=== PATIENT | female | born 1955 | race African-American/Black ===

== ENCOUNTER 2022-02-18 11:41 | Inpatient (IN) | payer MEDICARE, MEDICAID ==
[~2022-02-18] VITALS: Ht 170.2 cm; Wt 88.5 kg
[~2022-02-18 11:41] MED LIST: ACET-3161 PO; ALBU05 IH; COLC0.6T66 PO; FERR-63 PO; FLUT1DIS3 IH; FOLI-43 PO; FURO-151 PO; LEVO175T7 PO; NAPR-681 PO; OMEP20CA14 PO; PROP10TA10 PO; VIT D3
[2022-02-18 12:30] LABS: HEMOGLOBIN. 9.5 g/dL (12.0-16.0); MEAN CORPUSCULAR VOLUME 69.9 fL (81.0-99.0); RED BLOOD CELL COUNT 4.14 mill/uL (4.2-5.4); RED CELL DISTRIBUTION WIDTH 16.6 % (11.6-14.6)
[2022-02-18 12:37] LABS: CHLORIDE 106 mEq/L (98-107)
[2022-02-18 12:47] LABS: ETHANOL BLOOD < 10 mg/dL
[2022-02-18 13:16] LABS: INR 1.4; PROTHROMBIN TIME 14.8 sec (9.6-11.0)
[2022-02-18] MEDS ORDERED: LEVOFLOXACIN 750MG PREMIX 150 ML IV ONE (13:45)
[2022-02-18 14:07] LABS: PLATELET ESTIMATE NORMAL
[2022-02-18 14:12] LABS: PLATELET 262 x1000/uL (130-400)
[2022-02-18] MEDS ORDERED: SODIUM CHLORIDE 0.9% 500 ML IV ONE ×2 (14:15→19:45)
[2022-02-18 16:35] VITALS: BP 88/47
[2022-02-18 16:40] VITALS: BP 92/47
[2022-02-18 16:58] VITALS: BP 101/36
[2022-02-18 17:02] VITALS: BP 101/36
[2022-02-18] MEDS ORDERED: ONDANSETRON HCL 4MG/2ML INJ IV PRN (17:15)
[2022-02-18] MEDS ORDERED: IPRATROPIUM/ALBUTEROL 0.5-3(2.5)MG/3ML NEB NEB PRN (17:15)
[2022-02-18] MEDS ORDERED: ACETAMINOPHEN 650MG/20.3ML UDC GT PRN ×2 (17:15)
[2022-02-18] MEDS: DEXT 5%/0.9% NACL 1,000 ML IV SCH (17:34)
[2022-02-18 19:05] LABS: TOTAL IRON BINDING CAPACITY 233 ug/dL (250-450)
[2022-02-18 19:22] LABS: T4 FREE 1.66 ng/dL (0.76-1.46)
[2022-02-18 19:40] VITALS: BP 68/39
[2022-02-18 20:00] VITALS: BP 90/39
[2022-02-18] MEDS ORDERED: MIDODRINE HCL 5MG TABLET NG SCH (20:00)
[2022-02-18] MEDS: LACTULOSE 20G/30ML UDC NG SCH (20:18)
[2022-02-18] MEDS: PANTOPRAZOLE SODIUM 40 MG/VIAL IV SCH (20:19)
[2022-02-18] MEDS ORDERED: LACTULOSE 20G/30ML UDC NG SCH (22:00)
[2022-02-19] VITALS: BP 118/64
[2022-02-19 04:00] VITALS: BP 96/56
[2022-02-19 07:46] LABS: HEMATOCRIT. 22.9 % (36.0-48.0); HEMOGLOBIN. 7.5 g/dL (12.0-16.0); MEAN CORPUSCULAR HEMOGLOBIN 22.7 pg (28.0-32.0); MEAN PLATELET VOLUME 9.8 fl (7.4-10.4); PLATELET 231 x1000/uL (130-400); RED BLOOD CELL COUNT 3.32 mill/uL (4.2-5.4); RED CELL DISTRIBUTION WIDTH 16.2 % (11.6-14.6)
[2022-02-19 08:00] VITALS: BP 112/57
[2022-02-19 08:11] LABS: CHLORIDE 108 mEq/L (98-107)
[2022-02-19 08:21] LABS: PHOSPHORUS 5.2 mg/dL (2.5-4.9)
[2022-02-19] MEDS ORDERED: MIDODRINE HCL 5MG TABLET NG SCH (09:00)
[2022-02-19] MEDS: CITRIC ACID/SODIUM CITRATE SOLN 15ML UDC PO SCH ×2 (10:53→17:56)
[2022-02-19] MEDS: LACTULOSE 20G/30ML UDC NG SCH ×4 (10:53→21:54)
[2022-02-19 10:55] LABS: CLARITY URINE CLEAR (CLEAR); COLOR URINE DARK YELLOW (YELLOW); KETONES URINE NEGATIVE (NEGATIVE); LEUKOCYTE ESTERASE URINE NEGATIVE (NEGATIVE); NITRITE URINE NEGATIVE (NEGATIVE); OCCULT BLOOD URINE NEGATIVE (NEGATIVE); PH URINE 5.5 (4.5-8.0); PROTEIN URINE NEGATIVE (NEGATIVE); SPECIFIC GRAVITY URINE 1.014 (1.005-1.030)
[2022-02-19] MEDS: DEXT 5%/0.9% NACL 1,000 ML IV SCH ×2 (11:55→16:04)
[2022-02-19 12:00] VITALS: BP 108/49
[2022-02-19 14:02] LABS: PLATELET ESTIMATE NORMAL
[2022-02-19 15:58] LABS: *AMPHETAMINES SCREEN URINE NEGATIVE (NEGATIVE); *BARBITURATES SCREEN URINE NEGATIVE (NEGATIVE); *BENZODIAZEPINES SCREEN URINE NEGATIVE (NEGATIVE); *COCAINE SCREEN URINE NEGATIVE (NEGATIVE); CANNABINOID URINE SCREEN NEGATIVE (NEGATIVE); METHADONE URINE SCREEN NEGATIVE (NEGATIVE); OPIATES URINE SCREEN NEGATIVE (NEGATIVE); PHENCYCLIDINE URINE SCREEN NEGATIVE (NEGATIVE)
[2022-02-19 16:00] VITALS: BP 112/53
[2022-02-19 16:58] LABS: FERRITIN 71 ng/mL (10-291)
[2022-02-19] MEDS ORDERED: ALBUMIN HUMAN 25GM/100ML (25%) IV NR (17:00)
[2022-02-19] MEDS ORDERED: OCTREOTIDE 1,000 MCG in SODIUM CHLORIDE 0.9% 98 ML IV SCH (17:00)
[2022-02-19 17:09] LABS: HEPATITIS B SURFACE ANTIGEN NEGATIVE
[2022-02-19 17:45] LABS: CREATINE KINASE 246 IU/L (26-192)
[2022-02-19 20:00] VITALS: BP 135/57
[2022-02-19 20:33] LABS: VITAMIN B12 SERUM >2000 pg/mL pg/mL (211-911)
[2022-02-19 20:48] LABS: FOLIC ACID (FOLATE) SERUM > 20.00 ng/mL (>5.38)
[2022-02-19] MEDS: PANTOPRAZOLE SODIUM 40 MG/VIAL IV SCH (21:53)
[2022-02-19] MEDS: RIFAXIMIN 550 MG TABLET PO SCH (21:54)
[2022-02-19] MEDS: MIDODRINE HCL 5MG TABLET NG SCH (22:00)
[2022-02-20] VITALS: BP 113/55
[2022-02-20] MEDS: OCTREOTIDE 1,000 MCG in SODIUM CHLORIDE 0.9% 98 ML IV SCH ×2 (03:21→23:52)
[2022-02-20 04:00] VITALS: BP 106/55
[2022-02-20] MEDS: LACTULOSE 20G/30ML UDC NG SCH ×3 (06:22→21:56)
[2022-02-20] MEDS: MIDODRINE HCL 5MG TABLET NG SCH ×3 (06:23→21:57)
[2022-02-20 07:44] LABS: INR 1.5; PROTHROMBIN TIME 15.9 sec (9.6-11.0)
[2022-02-20 07:55] LABS: HEMATOCRIT. 22.7 % (36.0-48.0); HEMOGLOBIN. 7.6 g/dL (12.0-16.0); MEAN CORPUSCULAR VOLUME 69.1 fL (81.0-99.0); RED BLOOD CELL COUNT 3.29 mill/uL (4.2-5.4)
[2022-02-20 08:00] VITALS: BP 107/52
[2022-02-20] MEDS ORDERED: ALBUMIN HUMAN 25GM/100ML (25%) IV NR (08:00)
[2022-02-20] MEDS ORDERED: LIDOCAINE HCL 1% 10 MG/ML 10ML VIAL ONE (08:03)
[2022-02-20] MEDS ORDERED: SODIUM BICARBONATE 4% (2.4MEQ) 5ML VIAL IV ONE (08:03)
[2022-02-20 08:36] LABS: PHOSPHORUS 5.5 mg/dL (2.5-4.9)
[2022-02-20 09:38] LABS: PLATELET ESTIMATE NORMAL
[2022-02-20 09:39] LABS: MEAN PLATELET VOLUME 9.9 fl (7.4-10.4)
[2022-02-20 09:40] LABS: PLATELET 215 x1000/uL (130-400)
[2022-02-20] MEDS: RIFAXIMIN 550 MG TABLET PO SCH ×2 (10:12→21:56)
[2022-02-20] MEDS: CITRIC ACID/SODIUM CITRATE SOLN 15ML UDC PO SCH ×3 (10:12→17:24)
[2022-02-20 12:00] VITALS: BP 111/83
[2022-02-20] MEDS: DEXT 5%/0.9% NACL 1,000 ML IV SCH ×2 (13:12→23:53)
[2022-02-20 16:00] VITALS: BP 111/83
[2022-02-20 20:00] VITALS: BP 98/47
[2022-02-20] MEDS: ALBUMIN HUMAN 25GM/100ML (25%) IV NR (21:44)
[2022-02-20] MEDS: PANTOPRAZOLE SODIUM 40 MG/VIAL IV SCH (21:58)
[2022-02-21] VITALS (12 sets, daily range): BP systolic 96–117; BP diastolic 37–65
[2022-02-21] MEDS: LACTULOSE 20G/30ML UDC NG SCH (05:44)
[2022-02-21] MEDS: MIDODRINE HCL 5MG TABLET NG SCH ×3 (05:45→21:57)
[2022-02-21 06:50] LABS: INR 1.7; PROTHROMBIN TIME 17.4 sec (9.6-11.0)
[2022-02-21 07:00] LABS: BASOPHILS % 0.3 % (0.0-2.0); EOSINOPHILS % 1.7 % (0.0-5.0); LYMPHOCYTES % 20.5 % (20.0-50.0); MEAN CORPUSCULAR HEMOGLOBIN 23.6 pg (28.0-32.0); MEAN CORPUSCULAR VOLUME 67.9 fL (81.0-99.0); MONOCYTES % 10.2 % (2.0-8.0); NEUTROPHILS % 67.3 % (40.0-76.0); RED BLOOD CELL COUNT 2.67 mill/uL (4.2-5.4); RED CELL DISTRIBUTION WIDTH 16.3 % (11.6-14.6)
[2022-02-21 08:03] LABS: HEMOGLOBIN. 6.3 g/dL (12.0-16.0)
[2022-02-21 08:04] LABS: HEMATOCRIT. 18.2 % (36.0-48.0)
[2022-02-21] MEDS: RIFAXIMIN 550 MG TABLET PO SCH (08:57)
[2022-02-21] MEDS: CITRIC ACID/SODIUM CITRATE SOLN 15ML UDC PO SCH ×3 (08:57→17:00)
[2022-02-21 10:49] LABS: MEAN PLATELET VOLUME 10.9 fl (7.4-10.4)
[2022-02-21 10:50] LABS: PLATELET 161 x1000/uL (130-400)
[2022-02-21] MEDS ORDERED: ALBUMIN HUMAN 25GM/100ML (25%) IV NR (18:00)
[2022-02-21] MEDS: PANTOPRAZOLE SODIUM 40 MG/VIAL IV SCH (21:36)
[2022-02-21] MEDS: OCTREOTIDE 1,000 MCG in SODIUM CHLORIDE 0.9% 98 ML IV SCH (21:56)
[2022-02-21] MEDS: ALBUMIN HUMAN 25GM/100ML (25%) IV NR (21:56)
[2022-02-21 23:45] LABS: HEMATOCRIT 21.6 % (36.0-48.0); HEMOGLOBIN 7.3 g/dL (12.0-16.0)
[2022-02-21 23:54] LABS: INR 1.7; PROTHROMBIN TIME 17.5 sec (9.6-11.0)
[2022-02-22] VITALS (11 sets, daily range): BP systolic 94–123; BP diastolic 38–55
[2022-02-22] MEDS: MIDODRINE HCL 5MG TABLET NG SCH ×3 (06:05→21:21)
[2022-02-22 07:14] LABS: BASOPHILS % 0.3 % (0.0-2.0); EOSINOPHILS % 0.9 % (0.0-5.0); HEMATOCRIT. 24.2 % (36.0-48.0); HEMOGLOBIN. 8.2 g/dL (12.0-16.0); MEAN CORPUSCULAR HEMOGLOBIN 24.6 pg (28.0-32.0); MEAN CORPUSCULAR VOLUME 72.2 fL (81.0-99.0); MONOCYTES % 9.4 % (2.0-8.0); NEUTROPHILS % 76.4 % (40.0-76.0); RED BLOOD CELL COUNT 3.35 mill/uL (4.2-5.4)
[2022-02-22] MEDS: CITRIC ACID/SODIUM CITRATE SOLN 15ML UDC PO SCH ×3 (08:35→17:11)
[2022-02-22] MEDS: FOLIC ACID/VITAMIN B COMP W-C TABLET PO SCH (08:36)
[2022-02-22] MEDS: LACTULOSE 20G/30ML UDC NG SCH (08:38)
[2022-02-22 09:30] LABS: MEAN PLATELET VOLUME 11.3 fl (7.4-10.4); PLATELET 145 x1000/uL (130-400)
[2022-02-22] MEDS ORDERED: POTASSIUM CHLORIDE 20MEQ TABLET SR PO NR (09:30)
[2022-02-22] MEDS ORDERED: METOLAZONE 10MG TABLET PO NR (15:00)
[2022-02-22] MEDS: OCTREOTIDE 1,000 MCG in SODIUM CHLORIDE 0.9% 98 ML IV SCH (17:12)
[2022-02-22] MEDS: PANTOPRAZOLE SODIUM 40 MG/VIAL IV SCH (21:21)
[2022-02-23] VITALS: BP 115/56
[2022-02-23 04:00] VITALS: BP 115/57
[2022-02-23] MEDS: MIDODRINE HCL 5MG TABLET NG SCH ×3 (06:12→20:58)
[2022-02-23 07:40] LABS: HEMATOCRIT. 29.3 % (36.0-48.0); HEMOGLOBIN. 9.8 g/dL (12.0-16.0); MEAN CORPUSCULAR HEMOGLOBIN 24.6 pg (28.0-32.0); MEAN CORPUSCULAR VOLUME 73.3 fL (81.0-99.0); MEAN PLATELET VOLUME 11.1 fl (7.4-10.4); PLATELET 169 x1000/uL (130-400); RED CELL DISTRIBUTION WIDTH 20.1 % (11.6-14.6)
[2022-02-23 08:00] VITALS: BP 101/48
[2022-02-23] MEDS: CITRIC ACID/SODIUM CITRATE SOLN 15ML UDC PO SCH ×3 (08:42→16:32)
[2022-02-23] MEDS: LACTULOSE 20G/30ML UDC NG SCH (08:42)
[2022-02-23] MEDS: FOLIC ACID/VITAMIN B COMP W-C TABLET PO SCH (08:43)
[2022-02-23 10:21] LABS: PLATELET ESTIMATE NORMAL
[2022-02-23] MEDS ORDERED: METOLAZONE 10MG TABLET PO NR (11:00)
[2022-02-23] MEDS: FUROSEMIDE 40MG/4ML VIAL IVP SCH (11:38)
[2022-02-23 12:00] VITALS: BP 104/49
[2022-02-23] MEDS: OCTREOTIDE 1,000 MCG in SODIUM CHLORIDE 0.9% 98 ML IV SCH (13:11)
[2022-02-23 16:00] VITALS: BP 132/53
[2022-02-23 20:00] VITALS: BP 114/65
[2022-02-23] MEDS: PANTOPRAZOLE SODIUM 40 MG/VIAL IV SCH (20:58)
[2022-02-24] VITALS: BP 104/53
[2022-02-24 04:00] VITALS: BP 108/54
[2022-02-24] MEDS: MIDODRINE HCL 5MG TABLET NG SCH ×3 (06:29→21:11)
[2022-02-24 07:49] LABS: HEMATOCRIT. 28.4 % (36.0-48.0); HEMOGLOBIN. 9.4 g/dL (12.0-16.0); MEAN CORPUSCULAR HEMOGLOBIN 24.2 pg (28.0-32.0); MEAN CORPUSCULAR VOLUME 73.3 fL (81.0-99.0); RED BLOOD CELL COUNT 3.87 mill/uL (4.2-5.4); RED CELL DISTRIBUTION WIDTH 20.2 % (11.6-14.6)
[2022-02-24 08:00] VITALS: BP 100/63
[2022-02-24 08:23] LABS: PLATELET ESTIMATE NORMAL
[2022-02-24 08:24] LABS: MEAN PLATELET VOLUME 10.8 fl (7.4-10.4); PLATELET 152 x1000/uL (130-400)
[2022-02-24] MEDS: FOLIC ACID/VITAMIN B COMP W-C TABLET PO SCH (08:43)
[2022-02-24] MEDS: LACTULOSE 20G/30ML UDC NG SCH (08:43)
[2022-02-24] MEDS: FUROSEMIDE 40MG/4ML VIAL IVP SCH (08:43)
[2022-02-24] MEDS: OCTREOTIDE 1,000 MCG in SODIUM CHLORIDE 0.9% 98 ML IV SCH (08:44)
[2022-02-24] MEDS: CITRIC ACID/SODIUM CITRATE SOLN 15ML UDC PO SCH (08:45)
[2022-02-24] MEDS: CITRIC ACID/SODIUM CITRATE SOLN 30ML UDC PO SCH ×3 (09:00→16:41)
[2022-02-24] MEDS ORDERED: LIDOCAINE HCL 1% 30ML VIAL (10MG/ML) ONE (09:19)
[2022-02-24] MEDS ORDERED: SODIUM BICARBONATE 4% (2.4MEQ) 5ML VIAL IV ONE (09:19)
[2022-02-24 16:00] VITALS: BP 93/45
[2022-02-24] MEDS ORDERED: ALBUMIN HUMAN 25GM/100ML (25%) IV NR (16:00)
[2022-02-24 20:00] VITALS: BP 111/54
[2022-02-24] MEDS: PANTOPRAZOLE SODIUM 40 MG/VIAL IV SCH (21:11)
[2022-02-25] VITALS: BP 115/63
[2022-02-25 04:00] VITALS: BP 98/53
[2022-02-25] MEDS: MIDODRINE HCL 5MG TABLET NG SCH ×3 (05:24→21:08)
[2022-02-25 06:42] LABS: BASOPHILS % 0.1 % (0.0-2.0); EOSINOPHILS % 1.2 % (0.0-5.0); HEMATOCRIT. 26.8 % (36.0-48.0); HEMOGLOBIN. 8.7 g/dL (12.0-16.0); LYMPHOCYTES % 7.3 % (20.0-50.0); MEAN CORPUSCULAR HEMOGLOBIN 24.3 pg (28.0-32.0); MEAN CORPUSCULAR VOLUME 74.5 fL (81.0-99.0); MONOCYTES % 11.3 % (2.0-8.0); NEUTROPHILS % 80.1 % (40.0-76.0); RED BLOOD CELL COUNT 3.59 mill/uL (4.2-5.4); RED CELL DISTRIBUTION WIDTH 21.4 % (11.6-14.6)
[2022-02-25 08:00] VITALS: BP 114/61
[2022-02-25] MEDS: LACTULOSE 20G/30ML UDC NG SCH (08:09)
[2022-02-25] MEDS: FOLIC ACID/VITAMIN B COMP W-C TABLET PO SCH (08:10)
[2022-02-25] MEDS: CITRIC ACID/SODIUM CITRATE SOLN 30ML UDC PO SCH (08:13)
[2022-02-25 08:42] LABS: PLATELET 143 x1000/uL (130-400)
[2022-02-25] MEDS ORDERED: ALBUMIN HUMAN 25GM/100ML (25%) IV NR ×2 (09:00→20:00)
[2022-02-25 12:00] VITALS: BP 107/55
[2022-02-25] MEDS: LACTULOSE 20G/30ML UDC PO SCH ×2 (13:25→21:08)
[2022-02-25 16:00] VITALS: BP 98/37
[2022-02-25] MEDS: AZTREONAM 500 MG in DEXTROSE 5% WATER 50 ML IV SCH (18:00)
[2022-02-25 20:00] VITALS: BP 94/45
[2022-02-25] MEDS: PANTOPRAZOLE SODIUM 40 MG/VIAL IV SCH (21:07)
[2022-02-25] MEDS: METRONIDAZOLE 250MG TABLET PO SCH (21:08)
[2022-02-26] VITALS (8 sets, daily range): BP systolic 100–157; BP diastolic 51–67
[2022-02-26] MEDS: DIPHENHYDRAMINE 50MG/ML VIAL IV PRN ×2 (00:31→10:55)
[2022-02-26] MEDS: AZTREONAM 500 MG in DEXTROSE 5% WATER 50 ML IV SCH ×3 (01:38→21:01)
[2022-02-26] MEDS: METRONIDAZOLE 250MG TABLET PO SCH ×2 (05:25→15:50)
[2022-02-26] MEDS: MIDODRINE HCL 5MG TABLET NG SCH ×2 (05:26→15:50)
[2022-02-26] MEDS: LACTULOSE 20G/30ML UDC PO SCH ×2 (05:26→15:50)
[2022-02-26 06:24] LABS: BASOPHILS % 0.2 % (0.0-2.0); EOSINOPHILS % 1.5 % (0.0-5.0); HEMATOCRIT. 24.9 % (36.0-48.0); HEMOGLOBIN. 8.3 g/dL (12.0-16.0); LYMPHOCYTES % 10.6 % (20.0-50.0); MEAN CORPUSCULAR HEMOGLOBIN 24.5 pg (28.0-32.0); MEAN CORPUSCULAR VOLUME 73.8 fL (81.0-99.0); MONOCYTES % 11.7 % (2.0-8.0); RED BLOOD CELL COUNT 3.38 mill/uL (4.2-5.4)
[2022-02-26 07:37] LABS: MEAN PLATELET VOLUME 11.7 fl (7.4-10.4); PLATELET 140 x1000/uL (130-400)
[2022-02-26] MEDS ORDERED: SODIUM CHLORIDE 0.9% 1,000 ML IV SCH (08:15)
[2022-02-26] MEDS: FOLIC ACID/VITAMIN B COMP W-C TABLET PO SCH (09:10)
[2022-02-26 10:04] LABS: CREATINE KINASE 220 IU/L (26-192)
[2022-02-26] MEDS ORDERED: ALBUMIN HUMAN 25GM/100ML (25%) IV NR (10:30)
[2022-02-26] MEDS: PANTOPRAZOLE SODIUM 40 MG/VIAL IV SCH (21:01)
[2022-02-27] MEDS ORDERED: ALBUMIN HUMAN 25GM/100ML (25%) IV NR (09:00)
== END 2022-02-26 22:00 | disposition home health service (06) | DRG 432 ==
LOC: ER 11:41 → 7EST 14:13 → EDBEDREQ 14:17 → EDBEDREQTM 14:17
PROVIDERS: ADMIT Internal Medicine; ATTEND Internal Medicine
PROC: 0W9G30Z Drainage of Peritoneal Cavity with Drainage Device, Percutaneous Approach (ICD-10-PCS; principal; 2022-02-20)
PROC: 30233N1 Transfusion of Nonautologous Red Blood Cells into Peripheral Vein, Percutaneous Approach (ICD-10-PCS; 2022-02-21)
PROC: 0W9G30Z Drainage of Peritoneal Cavity with Drainage Device, Percutaneous Approach (ICD-10-PCS; 2022-02-24)
DX: K70.31 Alcoholic cirrhosis of liver with ascites (principal); G93.41 Metabolic encephalopathy; K76.7 Hepatorenal syndrome; J18.9 Pneumonia, unspecified organism; E87.20 Acidosis, unspecified; N17.9 Acute kidney failure, unspecified; K76.82 Hepatic encephalopathy; E83.39 Other disorders of phosphorus metabolism; E86.9 Volume depletion, unspecified; E87.70 Fluid overload, unspecified; E89.0 Postprocedural hypothyroidism; K64.9 Unspecified hemorrhoids; N18.9 Chronic kidney disease, unspecified; Z88.0 Allergy status to penicillin; Z20.822 Contact with and (suspected) exposure to COVID-19; Z87.891 Personal history of nicotine dependence; Z82.49 Family history of ischemic heart disease and other diseases of the circulatory system; D63.1 Anemia in chronic kidney disease; G62.9 Polyneuropathy, unspecified; R26.9 Unspecified abnormalities of gait and mobility; D50.0 Iron deficiency anemia secondary to blood loss (chronic)
CPT/HCPCS: 36415; 49083; 71045; 76700; 80048; 80053; 80076; 80305; 80320; 81003; 82040; 82140; 82270; 82550; 82575; 82607; 82728; 82746; 83036; 83540; 83550; 83605; 83735; 83880; 84100; 84439; 84443; 84484; 85014; 85018; 85025; 85044; 85049; 85384; 86705; 86709; 86803; 86850; 86900; 86920; 87340; 87426; 87804; 88108; 88312; 92610; 93005; 93970; 97116; 97162; 99291; C9113; C9803; J1200; J1940; J1956; J2354; J3490; J7030; J7040; J7042; J7050; J7060; P9016; P9047; A4315; G0480

== ENCOUNTER 2022-02-26 22:08 | Inpatient (IN) | payer MEDICARE, MEDICAID ==
[~2022-02-26] VITALS: Ht 180.3 cm; Wt 85.6 kg
[2022-02-26 22:15] VITALS: BP 105/48
[2022-02-26] MEDS ORDERED: ONDANSETRON HCL 4MG TABLET PO PRN (23:00)
[2022-02-26] MEDS ORDERED: IPRATROPIUM/ALBUTEROL 0.5-3(2.5)MG/3ML NEB HHN PRN (23:00)
[2022-02-26] MEDS ORDERED: ACETAMINOPHEN 325MG TABLET PO PRN ×2 (23:00)
[2022-02-26] MEDS: METRONIDAZOLE 250MG TABLET PO SCH (23:57)
[2022-02-26] MEDS: LACTULOSE 20G/30ML UDC PO SCH (23:58)
[2022-02-26] MEDS: MIDODRINE HCL 5MG TABLET PO SCH (23:59)
[2022-02-27] MEDS: AZTREONAM 500 MG in DEXTROSE 5% WATER 50 ML IV SCH ×3 (06:01→21:34)
[2022-02-27] MEDS: LACTULOSE 20G/30ML UDC PO SCH ×3 (06:02→21:34)
[2022-02-27] MEDS: METRONIDAZOLE 250MG TABLET PO SCH ×3 (06:02→21:34)
[2022-02-27] MEDS: MIDODRINE HCL 5MG TABLET PO SCH ×3 (06:13→21:36)
[2022-02-27 07:18] VITALS: BP 93/50
[2022-02-27 07:20] LABS: BASOPHILS % 0.3 % (0.0-2.0); EOSINOPHILS % 1.6 % (0.0-5.0); HEMATOCRIT. 23.7 % (36.0-48.0); HEMOGLOBIN. 7.9 g/dL (12.0-16.0); LYMPHOCYTES % 12.2 % (20.0-50.0); MEAN CORPUSCULAR HEMOGLOBIN 24.3 pg (28.0-32.0); MEAN CORPUSCULAR VOLUME 72.5 fL (81.0-99.0); MONOCYTES % 12.6 % (2.0-8.0); NEUTROPHILS % 73.3 % (40.0-76.0); RED BLOOD CELL COUNT 3.27 mill/uL (4.2-5.4); RED CELL DISTRIBUTION WIDTH 22.4 % (11.6-14.6)
[2022-02-27 07:46] LABS: CHLORIDE 107 mEq/L (98-107)
[2022-02-27 08:00] VITALS: BP 121/49
[2022-02-27 08:26] LABS: MEAN PLATELET VOLUME 11.8 fl (7.4-10.4); PLATELET 142 x1000/uL (130-400)
[2022-02-27] MEDS: FOLIC ACID/VITAMIN B COMP W-C TABLET PO SCH (09:15)
[2022-02-27] MEDS: SODIUM CHLORIDE 0.9% 1,000 ML IV SCH ×2 (14:42)
[2022-02-27 20:00] VITALS: BP 97/41
[2022-02-27] MEDS: PANTOPRAZOLE 40MG DR TABLET PO SCH (21:34)
[2022-02-28] MEDS: SODIUM CHLORIDE 0.9% 1,000 ML IV SCH ×2 (00:29→09:06)
[2022-02-28] MEDS: AZTREONAM 500 MG in DEXTROSE 5% WATER 50 ML IV SCH ×3 (05:35→21:49)
[2022-02-28] MEDS: METRONIDAZOLE 250MG TABLET PO SCH ×3 (05:35→22:34)
[2022-02-28] MEDS: MIDODRINE HCL 5MG TABLET PO SCH ×3 (05:35→22:36)
[2022-02-28] MEDS: DIPHENHYDRAMINE 25MG CAPSULE PO PRN (05:35)
[2022-02-28] MEDS: LACTULOSE 20G/30ML UDC PO SCH ×3 (05:35→16:43)
[2022-02-28 08:00] VITALS: BP 97/52
[2022-02-28] MEDS: FOLIC ACID/VITAMIN B COMP W-C TABLET PO SCH (09:05)
[2022-02-28 12:58] LABS: CLARITY URINE TURBID (CLEAR); COLOR URINE DARK YELLOW (YELLOW); KETONES URINE TRACE (NEGATIVE); LEUKOCYTE ESTERASE URINE 3+ (NEGATIVE); NITRITE URINE NEGATIVE (NEGATIVE); OCCULT BLOOD URINE 3+ (NEGATIVE); PROTEIN URINE 2+ (NEGATIVE); SPECIFIC GRAVITY URINE 1.017 (1.005-1.030); UROBILINOGEN URINE 0.2 E.U./dL (0.2-1.0)
[2022-02-28 17:57] LABS: BASOPHILS % 0.3 % (0.0-2.0); HEMATOCRIT. 28.7 % (36.0-48.0); HEMOGLOBIN. 9.3 g/dL (12.0-16.0); LYMPHOCYTES % 9.8 % (20.0-50.0); MEAN CORPUSCULAR HEMOGLOBIN 24.1 pg (28.0-32.0); MEAN CORPUSCULAR VOLUME 74.8 fL (81.0-99.0); MONOCYTES % 11.4 % (2.0-8.0); NEUTROPHILS % 77.5 % (40.0-76.0); RED BLOOD CELL COUNT 3.84 mill/uL (4.2-5.4); RED CELL DISTRIBUTION WIDTH 23.9 % (11.6-14.6)
[2022-02-28 20:00] VITALS: BP 121/59
[2022-02-28] MEDS: PANTOPRAZOLE 40MG DR TABLET PO SCH (21:47)
[2022-02-28 22:37] VITALS: BP 104/55
[2022-03-01 05:12] LABS: MEAN PLATELET VOLUME 10.5 fl (7.4-10.4); PLATELET 170 x1000/uL (130-400)
[2022-03-01] MEDS: AZTREONAM 500 MG in DEXTROSE 5% WATER 50 ML IV SCH ×3 (06:27→21:37)
[2022-03-01] MEDS: MIDODRINE HCL 5MG TABLET PO SCH ×3 (06:27→21:38)
[2022-03-01] MEDS: METRONIDAZOLE 250MG TABLET PO SCH ×3 (06:27→21:37)
[2022-03-01 06:28] VITALS: BP 98/50
[2022-03-01 06:53] LABS: BASOPHILS % 0.4 % (0.0-2.0); EOSINOPHILS % 1.4 % (0.0-5.0); HEMATOCRIT. 24.4 % (36.0-48.0); HEMOGLOBIN. 8.1 g/dL (12.0-16.0); LYMPHOCYTES % 9.3 % (20.0-50.0); MEAN CORPUSCULAR HEMOGLOBIN 24.5 pg (28.0-32.0); MEAN CORPUSCULAR VOLUME 73.6 fL (81.0-99.0); MONOCYTES % 11.1 % (2.0-8.0); NEUTROPHILS % 77.8 % (40.0-76.0); RED BLOOD CELL COUNT 3.31 mill/uL (4.2-5.4); RED CELL DISTRIBUTION WIDTH 24.1 % (11.6-14.6)
[2022-03-01 07:19] LABS: INR 1.4; PROTHROMBIN TIME 15.1 sec (9.6-11.0)
[2022-03-01] MEDS: LACTULOSE 20G/30ML UDC PO SCH ×2 (09:39→17:00)
[2022-03-01] MEDS: FOLIC ACID/VITAMIN B COMP W-C TABLET PO SCH (09:39)
[2022-03-01] MEDS: DIPHENHYDRAMINE 25MG CAPSULE PO PRN ×2 (09:39→22:58)
[2022-03-01 10:29] LABS: PLATELET 150 x1000/uL (130-400)
[2022-03-01 15:41] LABS: PLATELET ESTIMATE NORMAL
[2022-03-01] MEDS: FLUCONAZOLE 100MG TABLET PO SCH (18:01)
[2022-03-01 19:51] VITALS: BP 117/59
[2022-03-01] MEDS: PANTOPRAZOLE 40MG DR TABLET PO SCH (20:30)
[2022-03-02] MEDS: AZTREONAM 500 MG in DEXTROSE 5% WATER 50 ML IV SCH ×3 (05:39→21:47)
[2022-03-02] MEDS: METRONIDAZOLE 250MG TABLET PO SCH ×3 (05:39→21:57)
[2022-03-02] MEDS: MIDODRINE HCL 5MG TABLET PO SCH ×3 (05:42→21:55)
[2022-03-02] MEDS: LACTULOSE 20G/30ML UDC PO SCH ×2 (09:00→16:18)
[2022-03-02] MEDS: FOLIC ACID/VITAMIN B COMP W-C TABLET PO SCH (09:00)
[2022-03-02] MEDS: FLUCONAZOLE 100MG TABLET PO SCH (09:00)
[2022-03-02 20:00] VITALS: BP 88/41
[2022-03-02] MEDS: PANTOPRAZOLE 40MG DR TABLET PO SCH (21:00)
[2022-03-03] VITALS (18 sets, daily range): BP systolic 78–118; BP diastolic 34–68
[2022-03-03] MEDS: MIDODRINE HCL 5MG TABLET PO SCH ×3 (06:00→21:00)
[2022-03-03 07:47] LABS: BASOPHILS % 0.2 % (0.0-2.0); EOSINOPHILS % 2.1 % (0.0-5.0); HEMATOCRIT. 24.3 % (36.0-48.0); HEMOGLOBIN. 7.9 g/dL (12.0-16.0); MEAN CORPUSCULAR HEMOGLOBIN 24.3 pg (28.0-32.0); MEAN CORPUSCULAR VOLUME 74.9 fL (81.0-99.0); MONOCYTES % 8.7 % (2.0-8.0); RED BLOOD CELL COUNT 3.25 mill/uL (4.2-5.4); RED CELL DISTRIBUTION WIDTH 24.6 % (11.6-14.6)
[2022-03-03] MEDS: LACTULOSE 20G/30ML UDC PO SCH ×3 (08:55→17:00)
[2022-03-03] MEDS: FOLIC ACID/VITAMIN B COMP W-C TABLET PO SCH ×2 (08:55→10:48)
[2022-03-03] MEDS: FLUCONAZOLE 100MG TABLET PO SCH ×2 (08:55→09:00)
[2022-03-03 10:25] LABS: MEAN PLATELET VOLUME 10.5 fl (7.4-10.4); PLATELET 151 x1000/uL (130-400)
[2022-03-03] MEDS ORDERED: LIDOCAINE HCL/PF 1% 10 MG/ML 5ML VIAL ONE (11:11)
[2022-03-03] MEDS ORDERED: HEPARIN 1000 UNITS/ML 10ML ONE (11:11)
[2022-03-03] MEDS ORDERED: FENTANYL CITRATE/PF 50MCG/ML 2ML VIAL IV NR (11:30)
[2022-03-03] MEDS ORDERED: FENTANYL CITRATE/PF 50MCG/ML 2ML VIAL ONE (11:30)
[2022-03-03] MEDS: PANTOPRAZOLE 40MG DR TABLET PO SCH (21:00)
[2022-03-04] VITALS (8 sets, daily range): BP systolic 82–99; BP diastolic 40–52
[2022-03-04] MEDS: MIDODRINE HCL 5MG TABLET PO SCH ×3 (06:58→21:40)
[2022-03-04 08:13] LABS: BASOPHILS % 0.2 % (0.0-2.0); EOSINOPHILS % 1.2 % (0.0-5.0); HEMOGLOBIN. 7.4 g/dL (12.0-16.0); LYMPHOCYTES % 10.4 % (20.0-50.0); MEAN CORPUSCULAR HEMOGLOBIN 24.5 pg (28.0-32.0); MEAN CORPUSCULAR VOLUME 72.5 fL (81.0-99.0); NEUTROPHILS % 80.2 % (40.0-76.0); RED BLOOD CELL COUNT 3.03 mill/uL (4.2-5.4); RED CELL DISTRIBUTION WIDTH 24.1 % (11.6-14.6)
[2022-03-04] MEDS: LACTULOSE 20G/30ML UDC PO SCH (08:33)
[2022-03-04] MEDS: FOLIC ACID/VITAMIN B COMP W-C TABLET PO SCH (08:34)
[2022-03-04] MEDS: FLUCONAZOLE 100MG TABLET PO SCH (08:34)
[2022-03-04 08:46] LABS: CHLORIDE 105 mEq/L (98-107)
[2022-03-04 11:32] LABS: VITAMIN B12 SERUM >2000 pg/mL pg/mL (211-911)
[2022-03-04 11:40] LABS: MEAN PLATELET VOLUME 10.6 fl (7.4-10.4); PLATELET 156 x1000/uL (130-400)
[2022-03-04 12:27] LABS: FERRITIN 120 ng/mL (10-291)
[2022-03-04 12:40] LABS: FOLIC ACID (FOLATE) SERUM > 20.00 ng/mL (>5.38)
[2022-03-04] MEDS: ALBUMIN HUMAN 25GM/100ML (25%) IV SCH ×2 (15:30→23:49)
[2022-03-04] MEDS: PANTOPRAZOLE 40MG DR TABLET PO SCH (21:36)
[2022-03-04] MEDS ORDERED: PHYTONADIONE 10MG/ML AMP SUBCUT NR (22:30)
[2022-03-05] VITALS (13 sets, daily range): BP systolic 73–100; BP diastolic 42–60
[2022-03-05] MEDS: MIDODRINE HCL 5MG TABLET PO SCH ×3 (05:39→22:29)
[2022-03-05 06:43] LABS: BASOPHILS % 0.3 % (0.0-2.0); EOSINOPHILS % 1.5 % (0.0-5.0); LYMPHOCYTES % 16.8 % (20.0-50.0); MEAN CORPUSCULAR HEMOGLOBIN 24.4 pg (28.0-32.0); MEAN CORPUSCULAR VOLUME 73.2 fL (81.0-99.0); NEUTROPHILS % 72.4 % (40.0-76.0); RED BLOOD CELL COUNT 2.52 mill/uL (4.2-5.4); RED CELL DISTRIBUTION WIDTH 23.6 % (11.6-14.6)
[2022-03-05 06:49] LABS: HEMOGLOBIN. 6.2 g/dL (12.0-16.0)
[2022-03-05 06:50] LABS: HEMATOCRIT. 18.5 % (36.0-48.0)
[2022-03-05 06:51] LABS: INR 1.9; PROTHROMBIN TIME 19.2 sec (9.6-11.0)
[2022-03-05 07:25] LABS: CHLORIDE 104 mEq/L (98-107)
[2022-03-05] MEDS: LACTULOSE 20G/30ML UDC PO SCH (08:13)
[2022-03-05] MEDS: FLUCONAZOLE 100MG TABLET PO SCH (08:27)
[2022-03-05] MEDS: FOLIC ACID/VITAMIN B COMP W-C TABLET PO SCH (08:27)
[2022-03-05] MEDS: PHYTONADIONE 10MG/ML AMP SUBCUT SCH (08:28)
[2022-03-05] MEDS ORDERED: ALBUMIN HUMAN 25GM/100ML (25%) IV SCH (13:45)
[2022-03-05 13:49] LABS: MEAN PLATELET VOLUME 11.3 fl (7.4-10.4); PLATELET 132 x1000/uL (130-400)
[2022-03-05 15:23] LABS: TOTAL IRON BINDING CAPACITY 99 ug/dL (250-450)
[2022-03-05] MEDS: PANTOPRAZOLE 40MG DR TABLET PO SCH (22:28)
[2022-03-05] MEDS: ALBUMIN HUMAN 25GM/100ML (25%) IV SCH (23:17)
[2022-03-06] VITALS (7 sets, daily range): BP systolic 90–97; BP diastolic 39–55
[2022-03-06] MEDS: MIDODRINE HCL 5MG TABLET PO SCH (06:16)
[2022-03-06] MEDS: ALBUMIN HUMAN 25GM/100ML (25%) IV SCH ×2 (06:17→08:32)
[2022-03-06 06:22] LABS: INR 1.7; PROTHROMBIN TIME 17.2 sec (9.6-11.0)
[2022-03-06] MEDS: PHYTONADIONE 10MG/ML AMP SUBCUT SCH (08:26)
[2022-03-06] MEDS: LACTULOSE 20G/30ML UDC PO SCH (08:26)
[2022-03-06] MEDS: FOLIC ACID/VITAMIN B COMP W-C TABLET PO SCH (08:26)
[2022-03-06] MEDS: FLUCONAZOLE 100MG TABLET PO SCH (08:26)
[2022-03-06 10:11] LABS: BASOPHILS % 0.3 % (0.0-2.0); EOSINOPHILS % 2.4 % (0.0-5.0); HEMATOCRIT. 21.4 % (36.0-48.0); HEMOGLOBIN. 7.2 g/dL (12.0-16.0); LYMPHOCYTES % 17.5 % (20.0-50.0); MEAN CORPUSCULAR HEMOGLOBIN 24.9 pg (28.0-32.0); MONOCYTES % 10.8 % (2.0-8.0); RED BLOOD CELL COUNT 2.89 mill/uL (4.2-5.4); RED CELL DISTRIBUTION WIDTH 23.2 % (11.6-14.6)
[2022-03-06] MEDS ORDERED: SODIUM BICARBONATE 4% (2.4MEQ) 5ML VIAL IV ONE (10:59)
[2022-03-06] MEDS ORDERED: LIDOCAINE HCL 1% 30ML VIAL (10MG/ML) ONE (11:00)
[2022-03-06] MEDS ORDERED: PHYTONADIONE 10MG/ML AMP SUBCUT SCH (11:00)
[2022-03-06 11:35] LABS: MEAN PLATELET VOLUME 8.8 fl (7.4-10.4); PLATELET 84 x1000/uL (130-400)
[2022-03-12 04:09] LABS: 25-HYDROXY VITAMIN D3 11 ng/mL (.)
== END 2022-03-06 15:49 | disposition short-term general hospital (02) | DRG 70 ==
PROVIDERS: ADMIT Physical Medicine & Rehabilitation Spinal Cord Injury Medicine; ATTEND Internal Medicine
DX: G93.41 Metabolic encephalopathy (principal); E43 Unspecified severe protein-calorie malnutrition; K76.7 Hepatorenal syndrome; N18.6 End stage renal disease; E87.20 Acidosis, unspecified; N17.9 Acute kidney failure, unspecified; R65.10 Systemic inflammatory response syndrome (SIRS) of non-infectious origin without acute organ dysfunction; B37.49 Other urogenital candidiasis; D68.9 Coagulation defect, unspecified; D64.9 Anemia, unspecified; E83.39 Other disorders of phosphorus metabolism; E87.70 Fluid overload, unspecified; E89.0 Postprocedural hypothyroidism; G62.9 Polyneuropathy, unspecified; K64.9 Unspecified hemorrhoids; K70.31 Alcoholic cirrhosis of liver with ascites; K76.82 Hepatic encephalopathy; N18.9 Chronic kidney disease, unspecified; R13.10 Dysphagia, unspecified; Z82.49 Family history of ischemic heart disease and other diseases of the circulatory system; Z87.891 Personal history of nicotine dependence; Z91.15 Patient's noncompliance with renal dialysis; F32.A Depression, unspecified; F41.9 Anxiety disorder, unspecified; R26.9 Unspecified abnormalities of gait and mobility; R19.7 Diarrhea, unspecified
CPT/HCPCS: 36415; 36558; 49083; 76937; 77001; 80048; 80053; 80076; 81003; 82140; 82306; 82607; 82728; 82746; 83540; 83550; 83735; 84100; 84134; 84443; 85025; 85044; 86850; 86900; 86920; 86927; 87106; 87426; 90935; 92523; 92610; 93970; 97110; 97116; 97150; 97162; 97166; 97530; 97535; 99152; 99153; A6261; C1893; J1644; J3010; J3430; J3490; J7030; J7060; P9016; P9017; P9047; Q0163; A5200; G0500

== ENCOUNTER 2022-03-16 06:30 | Inpatient (IN) | payer MEDICARE, MEDICAID ==
[2022-03-16] VITALS (10 sets, daily range): BP systolic 82–100; BP diastolic 48–63
[~2022-03-16] VITALS: Ht 180.3 cm; Wt 59.9 kg
[2022-03-16] MEDS ORDERED: ACETAMINOPHEN 325MG TABLET PO PRN ×3 (08:00→15:30)
[2022-03-16] MEDS ORDERED: ONDANSETRON HCL 4MG/2ML INJ IV PRN (08:00)
[2022-03-16] MEDS ORDERED: DIPHENHYDRAMINE 25MG CAPSULE PO PRN (08:00)
[2022-03-16] MEDS ORDERED: FLUCONAZOLE 100MG TABLET PO SCH (09:00)
[2022-03-16] MEDS: FOLIC ACID/VITAMIN B COMP W-C TABLET PO SCH (09:11)
[2022-03-16] MEDS: MIDODRINE HCL 5MG TABLET PO SCH ×3 (09:12→22:25)
[2022-03-16] MEDS: LACTULOSE 20G/30ML UDC PO SCH ×2 (13:16→22:24)
[2022-03-16] MEDS ORDERED: GUAIFENESIN 200MG/10ML SUGAR FREE UDC PO PRN (15:30)
[2022-03-16] MEDS ORDERED: MAGNESIUM/ALUMINUM HYDROXIDE/SIMETHICONE 30ML UDC PO PRN (15:30)
[2022-03-16 15:41] LABS: PROTHROMBIN TIME 21.4 sec (9.6-11.0)
[2022-03-16 15:46] LABS: INR 2.1
[2022-03-16] MEDS: OMEPRAZOLE 20MG CAPSULE EXTENDED RELEASE PO SCH (22:25)
[2022-03-17] VITALS (7 sets, daily range): BP systolic 72–105; BP diastolic 42–63
[2022-03-17] MEDS: LACTULOSE 20G/30ML UDC PO SCH ×4 (06:00→23:22)
[2022-03-17] MEDS: OMEPRAZOLE 20MG CAPSULE EXTENDED RELEASE PO SCH ×2 (06:40→23:22)
[2022-03-17] MEDS: LEVOTHYROXINE SODIUM 125MCG TABLET PO SCH (06:40)
[2022-03-17] MEDS: FOLIC ACID/VITAMIN B COMP W-C TABLET PO SCH (09:27)
[2022-03-17] MEDS: MIDODRINE HCL 5MG TABLET PO SCH ×2 (09:27→18:00)
[2022-03-17 13:30] LABS: PROTHROMBIN TIME 22.3 sec (9.6-11.0)
[2022-03-17 13:34] LABS: INR 2.2
[2022-03-17] MEDS: PHYTONADIONE 10MG/ML AMP SUBCUT SCH (15:55)
[2022-03-17] MEDS: ALBUMIN HUMAN 25GM/100ML (25%) IV SCH (23:22)
[2022-03-18] VITALS (13 sets, daily range): BP systolic 78–110; BP diastolic 5–62
[2022-03-18] MEDS: MIDODRINE HCL 5MG TABLET PO SCH ×3 (02:29→17:23)
[2022-03-18] MEDS: LACTULOSE 20G/30ML UDC PO SCH ×3 (04:07→21:08)
[2022-03-18] MEDS: LEVOTHYROXINE SODIUM 125MCG TABLET PO SCH (05:02)
[2022-03-18] MEDS: OMEPRAZOLE 20MG CAPSULE EXTENDED RELEASE PO SCH ×2 (05:02→21:00)
[2022-03-18] MEDS: ALBUMIN HUMAN 25GM/100ML (25%) IV SCH ×2 (05:03→10:24)
[2022-03-18 07:26] LABS: HEMATOCRIT. 21.3 % (36.0-48.0); HEMOGLOBIN. 7.1 g/dL (12.0-16.0); MEAN CORPUSCULAR HEMOGLOBIN 24.4 pg (28.0-32.0); MEAN CORPUSCULAR VOLUME 72.9 fL (81.0-99.0); RED BLOOD CELL COUNT 2.92 mill/uL (4.2-5.4); RED CELL DISTRIBUTION WIDTH 24.6 % (11.6-14.6)
[2022-03-18 07:44] LABS: INR 1.8; PROTHROMBIN TIME 18.4 sec (9.6-11.0)
[2022-03-18] MEDS: PHYTONADIONE 10MG/ML AMP SUBCUT SCH (10:08)
[2022-03-18] MEDS: FOLIC ACID/VITAMIN B COMP W-C TABLET PO SCH (10:08)
[2022-03-18 12:09] LABS: MEAN PLATELET VOLUME 9.4 fl (7.4-10.4); PLATELET 61 x1000/uL (130-400)
[2022-03-18 12:15] LABS: NUCLEATED RED BLOOD CELLS 2 /100 WBC; PLATELET ESTIMATE DECREASED
[2022-03-18 20:39] LABS: HEMATOCRIT 28.1 % (36.0-48.0); HEMOGLOBIN 9.5 g/dL (12.0-16.0)
[2022-03-19] VITALS: BP 107/62
[2022-03-19] MEDS: MIDODRINE HCL 5MG TABLET PO SCH ×3 (03:51→17:09)
[2022-03-19 04:00] VITALS: BP 97/40
[2022-03-19] MEDS: LACTULOSE 20G/30ML UDC PO SCH ×3 (06:00→21:12)
[2022-03-19] MEDS: LEVOTHYROXINE SODIUM 125MCG TABLET PO SCH (06:04)
[2022-03-19] MEDS: OMEPRAZOLE 20MG CAPSULE EXTENDED RELEASE PO SCH ×2 (06:04→21:12)
[2022-03-19 06:56] LABS: BASOPHILS % 0.1 % (0.0-2.0); HEMATOCRIT. 28.4 % (36.0-48.0); HEMOGLOBIN. 9.4 g/dL (12.0-16.0); LYMPHOCYTES % 9.3 % (20.0-50.0); MEAN CORPUSCULAR HEMOGLOBIN 25.3 pg (28.0-32.0); MEAN CORPUSCULAR VOLUME 76.2 fL (81.0-99.0); MONOCYTES % 4.8 % (2.0-8.0); NEUTROPHILS % 85.8 % (40.0-76.0); RED BLOOD CELL COUNT 3.73 mill/uL (4.2-5.4); RED CELL DISTRIBUTION WIDTH 25.3 % (11.6-14.6)
[2022-03-19 08:00] VITALS: BP 90/53
[2022-03-19] MEDS ORDERED: LIDOCAINE HCL 1% 10 MG/ML 10ML VIAL ONE (08:20)
[2022-03-19] MEDS ORDERED: SODIUM BICARBONATE 4% (2.4MEQ) 5ML VIAL IV ONE (08:20)
[2022-03-19] MEDS: FOLIC ACID/VITAMIN B COMP W-C TABLET PO SCH (09:38)
[2022-03-19] MEDS: PHYTONADIONE 10MG/ML AMP SUBCUT SCH (09:38)
[2022-03-19 11:43] LABS: INR 1.7; PROTHROMBIN TIME 17.7 sec (9.6-11.0)
[2022-03-19 12:00] VITALS: BP 100/48
[2022-03-19 13:09] LABS: MEAN PLATELET VOLUME 9.5 fl (7.4-10.4); PLATELET ESTIMATE DECREASED
[2022-03-19 13:10] LABS: PLATELET 65 x1000/uL (130-400)
[2022-03-19 17:00] VITALS: BP 90/51
[2022-03-19 20:00] VITALS: BP 91/50
[2022-03-20] VITALS (13 sets, daily range): BP systolic 78–123; BP diastolic 26–84
[2022-03-20] MEDS: MIDODRINE HCL 5MG TABLET PO SCH ×3 (01:05→18:07)
[2022-03-20] MEDS: OMEPRAZOLE 20MG CAPSULE EXTENDED RELEASE PO SCH ×2 (06:21→21:06)
[2022-03-20] MEDS: LEVOTHYROXINE SODIUM 125MCG TABLET PO SCH (06:21)
[2022-03-20] MEDS: LACTULOSE 20G/30ML UDC PO SCH ×3 (06:21→21:07)
[2022-03-20 08:32] LABS: BASOPHILS % 0.1 % (0.0-2.0); EOSINOPHILS % 0.2 % (0.0-5.0); HEMATOCRIT. 32.9 % (36.0-48.0); HEMOGLOBIN. 10.8 g/dL (12.0-16.0); LYMPHOCYTES % 7.9 % (20.0-50.0); MEAN CORPUSCULAR HEMOGLOBIN 24.5 pg (28.0-32.0); MEAN CORPUSCULAR VOLUME 74.4 fL (81.0-99.0); NEUTROPHILS % 85.8 % (40.0-76.0); RED BLOOD CELL COUNT 4.42 mill/uL (4.2-5.4); RED CELL DISTRIBUTION WIDTH 25.8 % (11.6-14.6)
[2022-03-20] MEDS ORDERED: ERGOCALCIFEROL 50000UNITS CAPSULE PO SCH (09:00)
[2022-03-20] MEDS: FOLIC ACID/VITAMIN B COMP W-C TABLET PO SCH (09:07)
[2022-03-20 10:21] LABS: PLATELET 83 x1000/uL (130-400)
[2022-03-21] VITALS: BP 90/54
[2022-03-21] MEDS: MIDODRINE HCL 5MG TABLET PO SCH ×2 (02:39→10:44)
[2022-03-21 04:00] VITALS: BP 96/57
[2022-03-21] MEDS: LACTULOSE 20G/30ML UDC PO SCH (06:00)
[2022-03-21] MEDS: OMEPRAZOLE 20MG CAPSULE EXTENDED RELEASE PO SCH (06:21)
[2022-03-21] MEDS: LEVOTHYROXINE SODIUM 125MCG TABLET PO SCH (06:22)
[2022-03-21 08:00] VITALS: BP 86/47
[2022-03-21 08:42] LABS: BASOPHILS % 0.1 % (0.0-2.0); HEMATOCRIT. 32.3 % (36.0-48.0); HEMOGLOBIN. 10.9 g/dL (12.0-16.0); LYMPHOCYTES % 16.6 % (20.0-50.0); MEAN CORPUSCULAR HEMOGLOBIN 25.2 pg (28.0-32.0); MEAN CORPUSCULAR VOLUME 74.8 fL (81.0-99.0); MEAN PLATELET VOLUME 10.2 fl (7.4-10.4); MONOCYTES % 10.2 % (2.0-8.0); NEUTROPHILS % 73.1 % (40.0-76.0); RED BLOOD CELL COUNT 4.32 mill/uL (4.2-5.4); RED CELL DISTRIBUTION WIDTH 25.1 % (11.6-14.6)
[2022-03-21 08:45] LABS: PLATELET 79 x1000/uL (130-400)
[2022-03-21] MEDS: FOLIC ACID/VITAMIN B COMP W-C TABLET PO SCH (10:44)
[2022-03-21 12:00] VITALS: BP 91/47
[2022-03-21 15:59] VITALS: BP 91/47
[2022-03-21 16:00] VITALS: BP 98/60
== END 2022-03-21 17:15 | disposition home or self-care (01) | DRG 441 ==
LOC: 7EST 06:30
PROVIDERS: ADMIT Internal Medicine; ATTEND Internal Medicine
PROC: 5A1D70Z Performance of Urinary Filtration, Intermittent, Less than 6 Hours Per Day (ICD-10-PCS; 2022-03-16)
PROC: 30233N1 Transfusion of Nonautologous Red Blood Cells into Peripheral Vein, Percutaneous Approach (ICD-10-PCS; principal; 2022-03-17)
PROC: 5A1D70Z Performance of Urinary Filtration, Intermittent, Less than 6 Hours Per Day (ICD-10-PCS; 2022-03-18)
PROC: 0W9G3ZZ Drainage of Peritoneal Cavity, Percutaneous Approach (ICD-10-PCS; 2022-03-19)
PROC: 5A1D70Z Performance of Urinary Filtration, Intermittent, Less than 6 Hours Per Day (ICD-10-PCS; 2022-03-20)
DX: K76.7 Hepatorenal syndrome (principal); E43 Unspecified severe protein-calorie malnutrition; N18.6 End stage renal disease; U07.1 COVID-19; G93.41 Metabolic encephalopathy; B37.49 Other urogenital candidiasis; E87.20 Acidosis, unspecified; N17.9 Acute kidney failure, unspecified; E72.4 Disorders of ornithine metabolism; Z68.1 Body mass index [BMI] 19.9 or less, adult; D68.9 Coagulation defect, unspecified; K70.31 Alcoholic cirrhosis of liver with ascites; K76.82 Hepatic encephalopathy; D63.8 Anemia in other chronic diseases classified elsewhere; E83.39 Other disorders of phosphorus metabolism; E88.09 Other disorders of plasma-protein metabolism, not elsewhere classified; G62.9 Polyneuropathy, unspecified; D50.9 Iron deficiency anemia, unspecified; E03.9 Hypothyroidism, unspecified; R26.9 Unspecified abnormalities of gait and mobility; R13.10 Dysphagia, unspecified; Z87.891 Personal history of nicotine dependence; Z99.2 Dependence on renal dialysis; Z88.0 Allergy status to penicillin
CPT/HCPCS: 36415; 49083; 80048; 80076; 82248; 85014; 85018; 85025; 86850; 86900; 86920; 86927; 87426; 90935; 97116; 97162; 97166; 97530; A6261; J3430; J3490; P9016; P9017; P9047